=== PATIENT | male | born 1980 | race Caucasian/White ===

== ENCOUNTER → 2016-10-23 | Outpatient (CLI) | payer OTHER ==
[~2016-10-23] MED LIST: ADVAIR 250/501 DISK IH; CIPRO500 MG PO; FLAGYL500 MG PO; LANTUS 3 M100 UNITS/ SC; METFORMIN HCL1000 MG PO; NOVOLIN N100 UNITS/ SC; NOVOLOG PE100 UNITS/ SC; PERCOCET 5/31 TABLET PO; Proventil,Ventolin H IH; TRAMADOL HCL50 MG PO; VENTOLIN17 GM IH
== END | disposition home or self-care (01) ==
LOC: RAD 17:30
DX: R10.9 Unspecified abdominal pain (principal)
CPT/HCPCS: 76700